=== PATIENT | male | born 1985 | race Caucasian/White ===

== ENCOUNTER 2016-10-18 15:51 | Emergency (ER) | payer MEDICAID ==
[2016-10-18 16:00] VITALS: RESP 18
--- NOTE | 2016-10-18 16:44 | EDPHY ---
H & P Time Seen by Provider: 10/18/16 16:10 HPI/ROS: HPI Depression, suicidal ideation. 30-year-old male by private vehicle with his mother. The patient was sent from the office of his psychiatrist, Dr. España, to be admitted to [address] [place] [address] started on the ECT program. The patient tells me that he has been feeling more depressed and suicidal lately. He states that his 31th birthday is next week any has been thinking about killing himself on his 31th birthday. He does not have a specific plan other than that. He states that he has been feeling more depressed and suicidal over the last 2-3 days. He is here voluntarily. ROS: Constitutional: No fever, no chills. No weakness. Eyes: No discharge. No changes in vision. ENT: No sore throat. No nasal congestion or rhinorrhea. Respiratory: No cough. No shortness of breath. Cardiac: No chest pain, no palpitations. Gastrointestinal: No abdominal pain, no vomiting, no diarrhea. Genitourinary: No hematuria. No dysuria or increased frequency with urination. Musculoskeletal: No back pain. No neck pain. No myalgias or arthralgias. Skin: No rashes. Neurological: No headache. No focal weakness or altered sensation. Past medical history: Depression, appendectomy. As above. Social history: Denies alcohol. Denies IV drugs or street drugs. Here with his mother. Physical Exam: General Appearance: Alert, no distress. Obese. This patient is responding to questions appropriately and in full sentences. This patient appears well- hydrated and well-nourished. Eyes: Pupils equal and round no pallor or injection. No lid edema, erythema or injection. Respiratory: There are no retractions, lungs are clear to auscultation with good air movement bilaterally. Cardiovascular: Regular rate and rhythm. No murmur. Gastrointestinal: Abdomen is soft and nontender, no masses, bowel sounds normal. No focal tenderness at McBurney's point. No Warren sign. Neurological: Motor sensory function is grossly intact. Cranial nerves are normal. Gait is normal. Skin: Warm and dry, no rashes. Musculoskeletal: Neck is supple and nontender. Extremities are symmetrical. All joints range without pain or impingement. Psychiatric: No agitation. Flat affect. Database: EKG: Imaging: Procedures: Emergency department course: Appropriate blood work sent. Patient cleared for behavioral health evaluation at 4:44 p.m.. [facility] is aware of the patient. 5:35 p.m.. [facility] informs me that the patient will be evaluated by EPS. 6:40 p.m., [facility] is not to evaluate this patient. 8:30 p.m., patient seen and evaluated by [facility]. He has been cleared for discharge by the on-call psychiatrist. I am in agreement with this. He has a ECT appointment scheduled for tomorrow. He will stay with his mother eda. He is not suicidal at this time. He understands his follow- up. Return to emergency department precautions discussed. He was discharged in good condition with his mother. Differential Diagnosis: The differential diagnosis on this patient includes but is not limited to situational depression, major depression, suicidal ideation. This represents a partial list of diagnoses considered. These considerations are based on history , physical exam, past history, reassessment and diagnostic testing. Smoking Status: Never smoked Constitutional: Initial Vital Signs Temperature (C) 36.7 C 10/18/16 15:57 Heart Rate 90 10/18/16 15:57 Respiratory Rate 18 10/18/16 15:57 Blood Pressure 156/102 H 10/18/16 15:57 O2 Sat (%) 96 10/18/16 15:57 O2 Delivery Mode Room Air Allergies/Adverse Reactions: amoxicillin Allergy (Verified 10/18/16 15:56) Home Medications: Medication Instructions Recorded Omeprazole [Prilosec 20 mg] 20 mg PO DAILY 06/08/16 EMSAM 10/18/16 Latuda 10/18/16 Methylfolate 10/18/16 Medical Decision Making - Data Points Laboratory Results: Laboratory Results 10/18/16 16:55 10/18/16 16:55 10/18/16 10/18/16 10/18/16 16:55 16:55 15:45 WBC 8.47 10^3/uL 10^3/uL (3.80-9.50) RBC 5.28 10^6/uL 10^6/uL (4.40-6.38) Hgb 13.4 g/dL L g/dL (13.7-17.5) Hct 41.0 % % (40.0-51.0) MCV 77.7 fL L fL (81.5-99.8) MCH 25.4 pg L pg (27.9-34.1) MCHC 32.7 g/dL g/dL (32.4-36.7) RDW 14.4 % % (11.5-15.2) Plt Count 214 10^3/uL 10^3/uL (150-400) MPV 10.5 fL fL (8.7-11.7) Neut % (Auto) 58.7 % % (39.3-74.2) Lymph % (Auto) 25.4 % % (15.0-45.0) [place] % (Auto) 8.6 % % (4.5-13.0) Eos % (Auto) 4.8 % % (0.6-7.6) Baso % (Auto) 0.6 % % (0.3-1.7) Nucleat RBC Rel Count 0.0 % % (0.0-0.2) Absolute Neuts (auto) 4.97 10^3/uL 10^3/uL (1.70-6.50) Absolute Lymphs (auto) 2.15 10^3/uL 10^3/uL (1.00-3.00) Absolute Monos (auto) 0.73 10^3/uL 10^3/uL (0.30-0.80) Absolute Eos (auto) 0.41 10^3/uL H 10^3/uL (0.03-0.40) Absolute Basos (auto) 0.05 10^3/uL 10^3/uL (0.02-0.10) Absolute Nucleated RBC 0.00 10^3/uL 10^3/uL (0-0.01) Immature Gran % 1.9 % H % (0.0-1.1) Immature Gran # 0.16 10^3/uL H 10^3/uL (0.00-0.10) Sodium 139 mEq/L mEq/L (134-144) Potassium 4.2 mEq/L mEq/L (3.5-5.2) Chloride 106 mEq/L mEq/L (97-110) Carbon Dioxide 22 mEq/l mEq/l (22-31) Anion Gap 11 mEq/L mEq/L (8-16) BUN 11 mg/dL mg/dL (7-23) Creatinine 0.9 mg/dL mg/dL (0.7-1.3) Estimated GFR > 60 Glucose 208 mg/dL H mg/dL (70-100) Calcium 9.4 mg/dL mg/dL (8.5-10.4) Salicylates < 1.0 mg/dL L mg/dL (2.0-20.0) Urine Opiates Screen NEGATIVE (NEGATIVE) Acetaminophen < 10 mcg/mL L mcg/mL (10.0-30.0) Urine Barbiturates NEGATIVE (NEGATIVE) Ur Phencyclidine Scrn NEGATIVE (NEGATIVE) Ur Amphetamine Screen NEGATIVE (NEGATIVE) U Benzodiazepines Scrn NEGATIVE (NEGATIVE) Urine Cocaine Screen NEGATIVE (NEGATIVE) U Marijuana (THC) Screen NEGATIVE (NEGATIVE) Ethyl Alcohol < 10 mg/dL mg/dL (0-10) Departure - Departure Disposition: Home, Routine, Self-Care Clinical Impression: Depression Condition: Good Instructions: Depression (ED) Additional Instructions: Read and follow provided instructions. Follow-up for ECT with your psychiatrist tomorrow as scheduled Return to the emergency department for worsening depression, suicidal thoughts or other serious concerns. Referrals: NONE *PRIMARY CARE P,. [Primary Care Provider] - As per Instructions
[2016-10-18 17:10] LABS: % IMMATURE GRANULYOCYTES 1.9 % (0.0-1.1); ABSOLUTE IMMATURE GRANULOCYTES 0.16 10^3/uL (0.00-0.10); ADD DIFF? NO; ADD MORPH? NO; ADD SCAN? NO; ATYPICAL LYMPHOCYTE FLAG 10 (0-99); FRAGMENT RBC FLAG 0 (0-99); HEMOGLOBIN 13.4 g/dL (13.7-17.5); LEFT SHIFT FLG 20 (0-99); LIPEMIA HEMOLYSIS FLAG 80 (0-99); MEAN CELL HEMOGLOBIN 25.4 pg (27.9-34.1); MEAN CELL HEMOGLOBIN CONCENTR. 32.7 g/dL (32.4-36.7); MEAN CELL VOLUME 77.7 fL (81.5-99.8); MEAN PLATELET VOLUME 10.5 fL (8.7-11.7); PLATELET CLUMPS FLAG 0 (0-99); PLATELET COUNT 214 10^3/uL (150-400); RED BLOOD CELL COUNT 5.28 10^6/uL (4.40-6.38); RED CELL DISTRIBUTION WIDTH 14.4 % (11.5-15.2)
[2016-10-18 17:26] LABS: ANION GAP 11 mEq/L (8-16); CALCIUM 9.4 mg/dL (8.5-10.4); CARBON DIOXIDE 22 mEq/l (22-31); CHLORIDE 106 mEq/L (97-110); CREATININE 0.9 mg/dL (0.7-1.3); ETHANOL SERUM < 10 mg/dL (0-10); GLOMERULAR FILTRATION RATE > 60; GLUCOSE 208 mg/dL (70-100); POTASSIUM 4.2 mEq/L (3.5-5.2); SALICYLATE < 1.0 mg/dL (2.0-20.0); SODIUM 139 mEq/L (134-144)
[2016-10-18 21:14] VITALS: BP 139/83; PULSE 92; TEMP 98.4; O2SAT 95
== END 2016-10-18 20:50 | disposition home or self-care (01) ==
DX: F32.9 Major depressive disorder, single episode, unspecified (principal)
CPT/HCPCS: 80305; G0480

== ENCOUNTER 2017-05-06 20:22 | Emergency (ER) | payer MEDICAID ==
[2017-05-06 20:30] VITALS: RESP 18; TEMP 97.7
--- NOTE | 2017-05-06 21:08 | EDPHY ---
H & P Stated Complaint: pt says he was using a knife to open a package, pxn wound to L hand Time Seen by Provider: 05/06/17 21:08 HPI/ROS: HPI: This is a 31-year-old male who presents with Chief Complaint: pt says he was using a knife to open a package, pxn wound to L hand Location: Left hand Quality: Cut by a knife Duration: 1 hour prior to arrival Signs and Symptoms: + moderate bleeding, no radiation, no numbness, no weakness , no tingling, no incontinence, no decreased range of motion Timing: Acute Severity: Mild Context: Patient reports that he was using his pocket knife to open up a package; slipped; and accidentally cut the area between his 1st and 2nd digit. He noted quite a bit of bleeding at 1st that was unable to get to stop so he called EMS. They applied direct pressure and a bandage and transported to the emergency room. He is right-hand dominant. Unsure of his last tetanus shot. He reports [id number] pain in his left hand. Denies decreased range of motion/paresthesias. Modifying Factors: Direct pressure Comment: ROS: Constitutional: No fever, no chills, no weight loss Eyes: No blurred vision Respiratory: No shortness of breath, no cough Cardiovascular: No chest pain Gastrointestinal: No nausea, no vomiting no diarrhea Genitourinary: No dysuria Extremities: No myalgias Neurologic: No weakness, no numbness Skin: No rashes Hematologic: No bruising, no bleeding CONSTITUTIONAL: malodorous obese well-appearing white male, awake and alert, no obvious distress HEENT: Atraumatic and normocephalic, PERRL, EOMI. Tympanic membranes clear. Oropharynx clear, no exudate and moist pink mucosa. Airway patent. No lymphadenopathy. No meningismus. Cardiovascular: Normal S1/S2, regular rate, regular rhythm, without murmur rub or gallop. PULMONARY/CHEST: Symmetrical and nontender. Clear to auscultation bilaterally. Good air movement. No accessory muscle usage. ABDOMEN: Soft, nondistended, nontender, no rebound, no guarding, no peritoneal signs, no masses or organomegaly. No CVAT. EXTREMITIES: 2/2 pulses, left hand 2 cm puncture wound at the 1st dorsal interosseous area. No scaphoid tenderness. 1st and 2nd digits DIP/PIP flexion and extension intact. Good light touch sensation. no deformities, no clubbing, no cyanosis or edema. NEUROLOGICAL: no focal neuro deficits. GCS 15. SKIN: Warm and dry, no erythema. no rash. Good capillary refill. Source: Patient Exam Limitations: No limitations - Medical/Surgical History Hx Asthma: No Hx Chronic Respiratory Disease: No Hx Diabetes: No Hx Cardiac Disease: No Hx Renal Disease: No Hx Cirrhosis: No Hx Alcoholism: No Hx HIV/AIDS: No Hx Splenectomy or Spleen Trauma: No Other PMH: depression, PE tubes as child / appy, hypertension, bipolar - Social History Smoking Status: Never smoked Constitutional: Initial Vital Signs Temperature (C) 36.5 C 05/06/17 20:27 Heart Rate 93 05/06/17 20:27 Respiratory Rate 18 05/06/17 20:27 Blood Pressure 165/102 H 05/06/17 20:27 O2 Sat (%) 99 05/06/17 20:27 O2 Delivery Mode Room Air Allergies/Adverse Reactions: amoxicillin Allergy (Verified 05/06/17 20:30) Home Medications: Medication Instructions Recorded Omeprazole [Prilosec 20 mg] 20 mg PO DAILY 06/08/16 Methylfolate 10/18/16 Hydrochlorothiazide 05/06/17 LaMICtal 05/06/17 Lisinopril 05/06/17 [place] Carbonate 05/06/17 Wellbutrin 100mg (*) 05/06/17 Medical Decision Making Procedures: Procedure: Laceration repair. Verbal consent was obtained from the patient. The simple, linear, 2 cm laceration on the left hand at the 1st dorsal interosseous was anesthetized in the usual fashion using 5 mL of 1% lidocaine without epinephrine. The wound was irrigated, draped and explored to its base with a gloved finger. There were no deep structures involved. No tendon injury was identified. The wound was repaired with #3, 6-0 Prolene in a simple directed pattern. Xeroform and clean sterile dressing applied. Good hemostasis was achieved and patient tolerated procedure well. The procedure was performed by myself. ED Course/Re-evaluation: Hand x-ray ordered Tetanus booster given No signs of neurovascular compromise/tenting of skin/compartment syndrome/ extremities and joints examined above and below area of concern and are neurovascularly intact. X-ray my read shows no acute fracture/dislocation/foreign body Closed with 3 nonabsorbable sutures Written and verbal wound care/suture care instructions provided. Clean sterile dressing placed. Differential Diagnosis: Differential includes laceration, nerve injury, tendon injury, foreign body. - Data Points Medications Given: Discontinued Medications Diphtheria/Tetanus/Acell Pertussis (Boostrix) 0.5 ml IM .ONCE ONE Stop: 05/06/17 21:15 Last Admin: 05/06/17 21:22 Dose: 0.5 ml Departure - Departure Disposition: Home, Routine, Self-Care Clinical Impression: Laceration of hand Qualifiers: Encounter type: initial encounter Foreign body presence: without foreign body Laterality: left Qualified Code(s): S61.412A - Laceration without foreign body of left hand, initial encounter Condition: Good Instructions: Care For Your Stitches (ED), Laceration (ED) Additional Instructions: Keep the dressing in place for 48 hours. After 48 hours, you may remove the dressing; wash the site daily with mild soap and water; then pat dry. Take ibuprofen 600-800 mg every 6-8 hours with food as needed for pain and inflammation. Apply ice for 30 minutes at a time; 2-3 times per day for the next 1-2 days. Please return to the emergency room to have her sutures removed in 7-10 days. Please return sooner to the emergency room if signs and symptoms of infection occur including increased warmth/drainage/erythema/fever/streaking. Follow up with Orthopedics in 7-10 days if symptoms worsen at which time they will re-evaluate. The x-rays obtained in the emergency department today demonstrate no evidence of an obvious fracture. Sometimes fractures are not obvious on the initial set of x-rays performed in the ED. For this reason, you should have repeat x-rays performed in 7-10 days if you are having any pain exclude the possibility of an occult fracture. Referrals: ANEUYD DELATORRE [Other] - As per Instructions
[2017-05-06] MEDS ORDERED: TDAP ADULT 0.5 ML INJ (BOOSTRIX) IM ONE (21:14)
[2017-05-06 22:03] VITALS: BP 134/87; PULSE 89; O2SAT 95
== END 2017-05-06 22:03 | disposition home or self-care (01) ==
PROC: 0HQGXZZ Repair Left Hand Skin, External Approach (ICD-10-PCS; principal; 2017-05-06)
DX: S61.412A Laceration without foreign body of left hand, initial encounter (principal); W26.0XXA Contact with knife, initial encounter; I10 Essential (primary) hypertension; Z23 Encounter for immunization

== ENCOUNTER 2017-07-29 03:36 | Emergency (ER) | payer MEDICAID ==
[2017-07-29 03:40] VITALS: TEMP 97.7
[2017-07-29] MEDS ORDERED: ONDANSETRON 4 MG/2 ML VIAL IVP ONE (03:57)
[2017-07-29] MEDS ORDERED: NS 1,000 ML IV ONE (03:57)
--- NOTE | 2017-07-29 04:00 | EDPHY ---
H & P Stated Complaint: N & V Time Seen by Provider: 07/29/17 03:42 HPI/ROS: HPI The patient presents with vomiting which began about 4-5 hours prior to presentation. He has multiple episodes of nonbloody nonbilious emesis which has been fairly constant. This is associated with 2 episodes of loose stool. He has diffuse crampy intermittent abdominal pain. He denies any fever or sick contacts. He has no prior history of similar.. REVIEW OF SYSTEMS Constitutional: No fever, no chills. Eyes: No discharge. ENT: No sore throat. Cardiovascular: No chest pain, no palpitations. Respiratory: No cough, no shortness of breath. Gastrointestinal: No abdominal pain, no vomiting. Genitourinary: No hematuria. Musculoskeletal: No back pain. Skin: No rashes. Neurological: No headache. PMHx: Depression, hypertension, GERD Soc Hx: Lives alone, no alcohol use recently PHYSICAL General Appearance: Alert, no distress Eyes: Pupils equal and round no pallor or injection ENT, Mouth: Mucous membranes moist Respiratory: There are no retractions, lungs are clear to auscultation Cardiovascular: Regular rate and rhythm Gastrointestinal: Abdomen is soft and non-tender, no masses, bowel sounds normal Neurological: A&O, moves all extremities Skin: Warm and dry, no rashes Musculoskeletal: Neck is supple non tender Extremities: symmetrical, full range of motion Psychiatric: Patient is oriented X 3, there is no agitation Source: Patient Exam Limitations: No limitations - Personal History Current Tetanus/Diphtheria Vaccine: Unsure Current Tetanus Diphtheria and Acellular Pertussis (TDAP): Unsure - Medical/Surgical History Hx Asthma: No Hx Chronic Respiratory Disease: No Hx Diabetes: No Hx Cardiac Disease: No Hx Renal Disease: No Hx Cirrhosis: No Hx Alcoholism: No Hx HIV/AIDS: No Hx Splenectomy or Spleen Trauma: No Other PMH: depression, PE tubes as child / appy, hypertension, bipolar - Social History Smoking Status: Never smoked Constitutional: Initial Vital Signs Temperature (C) 36.5 C 07/29/17 03:38 Heart Rate 112 H 07/29/17 03:38 Respiratory Rate 14 07/29/17 03:38 Blood Pressure 147/90 H 07/29/17 03:38 O2 Sat (%) 95 07/29/17 03:38 O2 Delivery Mode Room Air Allergies/Adverse Reactions: amoxicillin Allergy (Verified 05/06/17 20:30) Home Medications: Medication Instructions Recorded Omeprazole [Prilosec 20 mg] 20 mg PO DAILY 06/08/16 Methylfolate 10/18/16 Hydrochlorothiazide 05/06/17 LaMICtal 05/06/17 Lisinopril 05/06/17 [place] Carbonate 05/06/17 Wellbutrin 100mg (*) 05/06/17 Ondansetron Odt [Zofran Odt 4 mg 4 mg PO Q4 PRN #10 tab 07/29/17 (*)] Medical Decision Making Differential Diagnosis: 31-year-old male with hypertension, GERD, depression presents with 4-5 hours of nausea and vomiting, unable to tolerate anything by mouth. On exam, he is tachycardic, appears clinically dehydrated with dry mucous membranes, has a benign abdominal exam. Differential diagnosis includes viral gastroenteritis, toxin mediated enterocolitis, less likely appendicitis. In the emergency department, patient was started on IV fluids and Zofran. Basic labs were checked. These were unremarkable showing just mild dehydration. Patient's tachycardia improved. Abdominal exam is benign. The patient reports he is status post appendectomy. He feels well enough to go home. He was able to tolerate fluids by mouth. I feel he is likely suffering from a viral gastroenteritis and I have explained this to him. - Data Points Laboratory Results: Laboratory Results 07/29/17 04:18 07/29/17 03:00 Medications Given: Discontinued Medications Sodium Chloride (Ns) 1,000 mls @ 0 mls/hr IV ONCE ONE; Wide Open PRN Reason: Protocol Stop: 07/29/17 03:58 Last Admin: 07/29/17 04:00 Dose: 1,000 mls Ondansetron HCl (Zofran) 4 mg IVP EDNOW ONE Stop: 07/29/17 03:58 Last Admin: 07/29/17 04:00 Dose: 4 mg Ondansetron HCl (Zofran Odt 4 Mg Prepack#2) 1 btl TAKEHOME EDNOW ONE Stop: 07/29/17 05:26 Last Admin: 07/29/17 05:31 Dose: 1 btl Departure - Departure Disposition: Home, Routine, Self-Care Instructions: Ondansetron (By mouth), Abdominal Pain (ED) Referrals: UNKNOWN,NAME [Other] - As per Instructions Prescriptions: Ondansetron Odt [Zofran Odt 4 mg (*)] 4 mg PO Q4 PRN #10 tab PRN Reason: Nausea/Vomiting, Can'T Take Po
[2017-07-29 04:23] LABS: PLATELET COUNT 188 10^3/uL (150-400)
[2017-07-29] MEDS ORDERED: ONDANSETRON 4MG PREPACK#2 BTL TAKEHOME ONE (05:25)
[2017-07-29 05:37] VITALS: BP 107/53; PULSE 108; RESP 16; O2SAT 96
== END 2017-07-29 05:37 | disposition home or self-care (01) ==
DX: R11.2 Nausea with vomiting, unspecified (principal); R19.7 Diarrhea, unspecified; I10 Essential (primary) hypertension; E86.9 Volume depletion, unspecified
CPT/HCPCS: 96374

== ENCOUNTER 2018-01-12 04:10 | Emergency (ER) | payer MEDICAID ==
[2018-01-12] MEDS ORDERED: NS 1,000 ML IV ONE (04:59)
--- NOTE | 2018-01-12 04:59 | EDPHY ---
H & P Stated Complaint: Heart "feels funy" Time Seen by Provider: 01/12/18 04:30 HPI/ROS: HPI The patient presents with heart palpitations which has been present for the last several hours and have kept him from sleeping tonight. He feels that his heart is occasionally skipping a beat. He does not have any chest pain, shortness of breath, nausea or vomiting. He has no prior history of similar. He is not on any new medications, he is undergoing a treatment called trans cranial magnetic stimulation over the last 2 weeks as prescribed by his psychiatrist. He is having treatments 5 times a week. He has a history of hypertension though does not have any known structural heart disease. REVIEW OF SYSTEMS Constitutional: No fever, no chills. Eyes: No discharge. ENT: No sore throat. Cardiovascular: No chest pain, no palpitations. Respiratory: No cough, no shortness of breath. Gastrointestinal: No abdominal pain, no vomiting. Genitourinary: No hematuria. Musculoskeletal: No back pain. Skin: No rashes. Neurological: No headache. PMHx: Hypertension, depression Soc Hx: Housed, denies drug use PHYSICAL General Appearance: Alert, no distress Eyes: Pupils equal and round no pallor or injection ENT, Mouth: Mucous membranes moist Respiratory: There are no retractions, lungs are clear to auscultation Cardiovascular: Regular rate and rhythm Gastrointestinal: Abdomen is soft and non-tender, no masses, bowel sounds normal Neurological: A&O, moves all extremities Skin: Warm and dry, no rashes Musculoskeletal: Neck is supple non tender Extremities: symmetrical, full range of motion Psychiatric: Patient is oriented X 3, there is no agitation Source: Patient Exam Limitations: No limitations - Personal History Current Tetanus/Diphtheria Vaccine: Yes Current Tetanus Diphtheria and Acellular Pertussis (TDAP): Yes - Medical/Surgical History Hx Asthma: No Hx Chronic Respiratory Disease: No Hx Diabetes: No Hx Cardiac Disease: No Hx Renal Disease: No Hx Cirrhosis: No Hx Alcoholism: No Hx HIV/AIDS: No Hx Splenectomy or Spleen Trauma: No Other PMH: depression, PE tubes as child / appy, hypertension, bipolar - Social History Smoking Status: Never smoked Constitutional: Initial Vital Signs Temperature (C) 36.6 C 01/12/18 04:12 Heart Rate 80 01/12/18 04:12 Respiratory Rate 16 01/12/18 04:12 Blood Pressure 135/93 H 01/12/18 04:12 O2 Sat (%) 96 01/12/18 04:12 O2 Delivery Mode Room Air Allergies/Adverse Reactions: amoxicillin Allergy (Verified 05/06/17 20:30) Home Medications: Medication Instructions Recorded Hydrochlorothiazide 05/06/17 LaMICtal 05/06/17 Lisinopril 05/06/17 [place] Carbonate 05/06/17 Wellbutrin 100mg (*) 05/06/17 Medical Decision Making - Diagnostics EKG Interpretation: EKG: Complete interpretation has been separately recorded in the [facility] archive. Summary impression: Multi form PVCs Imaging Results: Chest x-ray two view shows no cardiomegaly, no infiltrate, no effusion, interpreted by me, radiology interpretation is pending. Differential Diagnosis: 32-year-old male with history of hypertension, depression presents with palpitations over the last several hours. On exam, well-appearing. EKG showing PVCs. The patient has no known history of underlying structural heart disease. He is receiving a new to treatment over the last 2 weeks by his psychiatrist called trans cranial magnetic stimulation, however arrhythmia as are not unknown side-effect. Plan for basic labs to evaluate for anemia, electrolyte disturbance, heart failure. Labs were checked and were unremarkable. The patient did receive an IV fluid bolus and this caused some improvement in his PVCs on the monitor. I will have him follow up with Cardiology if his symptoms persist. He is happy with this plan. - Data Points Laboratory Results: Laboratory Results 01/12/18 04:42 01/12/18 04:42 01/12/18 01/12/18 04:42 04:42 WBC 9.70 10^3/uL H 10^3/uL (3.80-9.50) RBC 5.33 10^6/uL 10^6/uL (4.40-6.38) Hgb 13.6 g/dL L g/dL (13.7-17.5) Hct 41.9 % % (40.0-51.0) MCV 78.6 fL L fL (81.5-99.8) MCH 25.5 pg L pg (27.9-34.1) MCHC 32.5 g/dL g/dL (32.4-36.7) RDW 14.5 % % (11.5-15.2) Plt Count 261 10^3/uL 10^3/uL (150-400) MPV 10.4 fL fL (8.7-11.7) Neut % (Auto) 52.3 % % (39.3-74.2) Lymph % (Auto) 33.8 % % (15.0-45.0) [place] % (Auto) 7.8 % % (4.5-13.0) Eos % (Auto) 3.6 % % (0.6-7.6) Baso % (Auto) 0.7 % % (0.3-1.7) Nucleat RBC Rel Count 0.0 % % (0.0-0.2) Absolute Neuts (auto) 5.07 10^3/uL 10^3/uL (1.70-6.50) Absolute Lymphs (auto) 3.28 10^3/uL H 10^3/uL (1.00-3.00) Absolute Monos (auto) 0.76 10^3/uL 10^3/uL (0.30-0.80) Absolute Eos (auto) 0.35 10^3/uL 10^3/uL (0.03-0.40) Absolute Basos (auto) 0.07 10^3/uL 10^3/uL (0.02-0.10) Absolute Nucleated RBC 0.00 10^3/uL 10^3/uL (0-0.01) Immature Gran % 1.8 % H % (0.0-1.1) Immature Gran # 0.17 10^3/uL H 10^3/uL (0.00-0.10) Sodium 144 mEq/L mEq/L (135-145) Potassium 3.8 mEq/L mEq/L (3.3-5.0) Chloride 108 mEq/L mEq/L (97-110) Carbon Dioxide 24 mEq/l mEq/l (22-31) Anion Gap 12 mEq/L mEq/L (8-16) BUN 13 mg/dL mg/dL (7-23) Creatinine 1.0 mg/dL mg/dL (0.7-1.3) Estimated GFR > 60 Glucose 90 mg/dL mg/dL (70-100) Calcium 9.1 mg/dL mg/dL (8.5-10.4) Magnesium 2.2 mg/dL mg/dL (1.6-2.3) NT-Pro-B Natriuret Pep < 11 pg/mL pg/mL (0-125) Medications Given: Discontinued Medications Sodium Chloride (Ns) 1,000 mls @ 0 mls/hr IV EDNOW ONE; Wide Open PRN Reason: Protocol Stop: 01/12/18 05:00 Last Admin: 01/12/18 05:10 Dose: 1,000 mls Departure - Departure Disposition: Home, Routine, Self-Care Clinical Impression: PVC (premature ventricular contraction) Condition: Good Instructions: Heart Palpitations (ED) Additional Instructions: Your testing today shows that you have premature ventricular contractions also known as PVCs. This can make you feel like your heart is skipping a beat. I recommend that you call the right of way appraiser to arrange for a follow-up appointment and more testing if your symptoms persist. You should return to the emergency department if you are worse in any way. Referrals: Kofi Thompson MD [Medical Doctor] - As per Instructions
[2018-01-12 05:02] LABS: PLATELET COUNT 261 10^3/uL (150-400)
[2018-01-12 06:34] VITALS: BP 136/81
--- NOTE | 2018-01-12 14:04 | CPEKG ---
Heart Rate: 80 RR Interval: 750 P-R Interval: 172 QRSD Interval: 90 QT Interval: 400 QTC Interval: 462 P Logan: 47 QRS Logan: 56 T Wave Logan: 0 EKG Severity - ABNORMAL ECG - EKG Impression: SINUS RHYTHM EKG Impression: MULTIFORM VENTRICULAR PREMATURE COMPLEXES Electronically Signed By: Tiffanie Sharpe 13-Jan-2018 04:56:19
== END 2018-01-12 06:17 | disposition home or self-care (01) ==
DX: I49.3 Ventricular premature depolarization (principal); I10 Essential (primary) hypertension; E86.9 Volume depletion, unspecified

== ENCOUNTER 2018-03-04 21:08 | Emergency (ER) | payer MEDICAID ==
--- NOTE | 2018-03-04 21:25 | CPEKG ---
Heart Rate: 78 RR Interval: 769 P-R Interval: 184 QRSD Interval: 92 QT Interval: 392 QTC Interval: 447 P Coker: 32 QRS Coker: 23 T Wave Coker: 1 EKG Severity - NORMAL ECG - EKG Impression: SINUS RHYTHM Electronically Signed By: Vin Barker 05-Mar-2018 08:44:29
[2018-03-04] MEDS ORDERED: ASPIRIN 81 MG CHEWABLE TAB PO ONE (21:57)
[2018-03-04] MEDS ORDERED: KETOROLAC 30 MG/1 ML SDV IVP ONE (21:57)
--- NOTE | 2018-03-04 22:00 | EDPHY ---
H & P Time Seen by Provider: 03/04/18 21:31 HPI/ROS: CHIEF COMPLAINT: Chest pain HISTORY OF PRESENT ILLNESS: Patient is a 32-year-old male presents emergency department with chest pain for the past 3 days. Patient describes it is substernal. It does not radiate. It is not positional. Patient has had no shortness of breath. No recent cough or fever. No leg pain or swelling. No recent travel. REVIEW OF SYSTEMS: My complete review of systems is negative except as mentioned in the HPI. Past Medical/Surgical History: Includes hypertension, depression, bipolar disorder Smoking Status: Never smoked Physical Exam: Vitals noted GENERAL: Well-appearing, in no acute distress, alert. HEENT: Eyes normal to inspection, normal pharynx, no signs of dehydration. NECK: No thyromegaly, no lymphadenopathy, supple. RESPIRATORY: Clear to auscultation bilaterally, no rales, rhonchi or wheezing. CVS: Regular rate and rhythm, no rubs, murmurs, or gallops. No chest wall tenderness palpation ABDOMEN: Soft, nontender, nondistended, no organomegaly. BACK: Normal to inspection, no CVA tenderness. SKIN: Normal color, no rash, warm, dry. No pallor. EXTREMITIES: No pedal edema, no calf tenderness, no Homans sign or cords, no joint swelling. NEURO/PSYCH: Alert and oriented, flat affect, normal motor sensory exam. No obvious cranial nerve deficit. Constitutional: Initial Vital Signs Temperature (C) 36.7 C 03/04/18 21:11 Heart Rate 86 03/04/18 21:11 Respiratory Rate 18 03/04/18 21:11 Blood Pressure 168/119 H 03/04/18 21:11 O2 Sat (%) 94 03/04/18 21:11 O2 Delivery Mode Room Air Allergies/Adverse Reactions: amoxicillin Allergy (Verified 03/04/18 21:13) Home Medications: Medication Instructions Recorded Hydrochlorothiazide 05/06/17 LaMICtal 05/06/17 Lisinopril 05/06/17 [place] Carbonate 05/06/17 Wellbutrin 100mg (*) 05/06/17 Medical Decision Making - Diagnostics Imaging Results: Imaging Impressions Chest X-Ray 03/04/18 21:57 Impression: Possible airways disease. Otherwise negative. ED Course/Re-evaluation: In the emergency department I discussed possible etiologies with the patient. I answered all his questions. IV was placed. Laboratory studies, EKG and chest x-ray were ordered. Patient was given aspirin 324 mg orally. Patient was given Toradol 30 mg IV. EKG shows normal sinus rhythm, normal rate, normal axis, normal intervals. There are no ST or T-wave abnormalities. EKG is normal as interpreted by me. CBC was unremarkable. Troponin was negative. Initial chemistry panel was rejected from the lab. I-STAT was performed. Patient had a normal creatinine 1.2. Patient's potassium was slightly low at 3.1. Chest x-ray: No pneumonia or infiltrate. No mass. No pneumothorax. Patient was given potassium chloride 40 mEq orally. I discussed the results with the patient. I answered all his questions. He was feeling better. He was given warnings prior to leaving. Will follow up with primary care. Differential Diagnosis: My differential includes but is not limited to ACS, acute NH, pulmonary embolus , pneumonia, bronchitis, pleurisy, pancreatitis, cholecystitis - Data Points Laboratory Results: Laboratory Results 03/04/18 21:32 03/04/18 21:32 03/04/18 03/04/18 03/04/18 22:25 21:37 21:32 WBC RBC Hgb POC Hgb 13.6 gm/dL L gm/dL (13.7-17.5) Hct POC Hct 40 % % (40-51) MCV MCH MCHC RDW Plt Count MPV Neut % (Auto) Lymph % (Auto) [place] % (Auto) Eos % (Auto) Baso % (Auto) Nucleat RBC Rel Count Absolute Neuts (auto) Absolute Lymphs (auto) Absolute Monos (auto) Absolute Eos (auto) Absolute Basos (auto) Absolute Nucleated RBC Immature Gran % Immature Gran # POC Sodium 143 mEq/L mEq/L (135-145) Sodium REJ POC Potassium 3.1 mEq/L L mEq/L (3.3-5.0) Potassium REJ POC Chloride 103 mEq/L mEq/L (97-110) Chloride REJ Carbon Dioxide REJ Anion Gap REJ POC BUN 16 mg/dL mg/dL (7-23) BUN REJ Creatinine REJ POC Creatinine 1.2 mg/dL mg/dL (0.7-1.3) Estimated GFR REJ Glucose REJ POC Glucose 101 mg/dL H mg/dL (70-100) Calcium REJ Total Bilirubin REJ Conjugated Bilirubin REJ Unconjugated Bilirubin REJ AST REJ ALT REJ Alkaline Phosphatase REJ POC Troponin I 0.00 ng/mL ng/mL (0.00-0.08) Total Protein REJ Albumin REJ Lipase REJ 03/04/18 21:32 WBC REJ RBC REJ Hgb REJ POC Hgb Hct REJ POC Hct MCV REJ MCH REJ MCHC REJ RDW REJ Plt Count REJ MPV REJ Neut % (Auto) REJ Lymph % (Auto) REJ [place] % (Auto) REJ Eos % (Auto) REJ Baso % (Auto) REJ Nucleat RBC Rel Count REJ Absolute Neuts (auto) REJ Absolute Lymphs (auto) REJ Absolute Monos (auto) REJ Absolute Eos (auto) REJ Absolute Basos (auto) REJ Absolute Nucleated RBC REJ Immature Gran % REJ Immature Gran # REJ POC Sodium Sodium POC Potassium Potassium POC Chloride Chloride Carbon Dioxide Anion Gap POC BUN BUN Creatinine POC Creatinine Estimated GFR Glucose POC Glucose Calcium Total Bilirubin Conjugated Bilirubin Unconjugated Bilirubin AST ALT Alkaline Phosphatase POC Troponin I Total Protein Albumin Lipase Medications Given: Discontinued Medications Aspirin (Aspirin) 324 mg PO EDNOW ONE Stop: 03/04/18 21:58 Last Admin: 03/04/18 22:07 Dose: 324 mg Ketorolac Tromethamine (Toradol) 30 mg IVP EDNOW ONE Stop: 03/04/18 21:58 Last Admin: 03/04/18 22:07 Dose: 30 mg Point of Care Test Results: Chemistry 03/04/18 03/04/18 22:25 21:37 POC Sodium 143 mEq/L mEq/L (135-145) POC Potassium 3.1 mEq/L L mEq/L (3.3-5.0) POC Chloride 103 mEq/L mEq/L (97-110) POC BUN 16 mg/dL mg/dL (7-23) POC Creatinine 1.2 mg/dL mg/dL (0.7-1.3) POC Glucose 101 mg/dL H mg/dL (70-100) POC Troponin I 0.00 ng/mL ng/mL (0.00-0.08) ISTAT H&H 03/04/18 22:25 POC Hgb 13.6 gm/dL L gm/dL (13.7-17.5) POC Hct 40 % % (40-51) Departure - Departure Disposition: Home, Routine, Self-Care Clinical Impression: Chest pain Qualifiers: Chest pain type: unspecified Qualified Code(s): R07.9 - Chest pain, unspecified Condition: Good Instructions: Chest Pain (ED) Additional Instructions: Return with increasing chest pain, shortness of breath or any other concerns. Referrals: ELENI GOFF [Other] - 1-2 days without fail
[2018-03-04] MEDS ORDERED: POTASSIUM CL 20 MEQ/15 ML UDCUP ONE (22:28)
[2018-03-04] MEDS ORDERED: POTASSIUM CL 20 MEQ/15 ML UDCUP PO ONE (22:32)
[2018-03-04 22:34] VITALS: BP 143/86
== END 2018-03-04 22:44 | disposition home or self-care (01) ==
DX: R07.9 Chest pain, unspecified (principal); I10 Essential (primary) hypertension
CPT/HCPCS: 82435-PO; 82565-PO; 82947-PO; 84132-PO; 84295-PO; 84484-PO; 84520-PO; 85014-PO; 96374; J1885

== ENCOUNTER 2018-09-11 23:26 | Emergency (ER) | payer MEDICAID ==
--- NOTE | 2018-09-11 23:40 | EDPHY ---
H & P Time Seen by Provider: 09/11/18 23:31 HPI/ROS: Chief Complaint: Chest pain, fatigue HPI: 32-year-old male with a history of depression obesity is presenting with chest pain and fatigue. He has had persistent chest pain to the course today. As move around a little bit. The last several hours has pain in his central test. At worst is 6/10. Currently a 4/10. Described as a dull ache. It is not exertional. It is not pleuritic. He has had some generalized fatigue. No shortness of breath. No cough. No fevers or chills. No nausea or vomiting. Has had a similar episodes in the past and was told he was having PVCs. No family history of coronary artery disease or sudden cardiac . Patient denies being suicidal at this time. ROS: 10 systems were reviewed and were negative except those elements noted in the HPI. PMH: Depression Social History: No smoking, rare alcohol, no recreational drug use Family History: non-contributory Physical Exam: Gen: Awake, Alert, No Distress, morbidly obese HEENT: Nose: no rhinorrhea Eyes: PERRLA, EOMI Mouth: Moist mucosa Neck: Supple, no JVD Chest: nontender, lungs clear to auscultation Heart: S1, S2 normal, no murmur Abd: Soft, non-tender, no guarding Back: no CVA tenderness, no midline tenderness Ext: no edema, non-tender Skin: no rash Neuro: CN II-XII intact, Sensation grossly intact, Strength 5/5 in bilateral upper and lower extremities - Medical/Surgical History Hx Asthma: No Hx Chronic Respiratory Disease: No Hx Diabetes: No Hx Cardiac Disease: No Hx Renal Disease: No Hx Cirrhosis: No Hx Alcoholism: No Hx HIV/AIDS: No Hx Splenectomy or Spleen Trauma: No Other PMH: depression, PE tubes as child / appy, hypertension, bipolar, - Social History Smoking Status: Never smoked Constitutional: Initial Vital Signs Temperature (C) 36.4 C 09/11/18 23:37 Heart Rate 75 09/11/18 23:37 Respiratory Rate 15 09/11/18 23:37 Blood Pressure 110/71 09/11/18 23:37 O2 Sat (%) 95 09/11/18 23:37 O2 Delivery Mode Room Air Allergies/Adverse Reactions: amoxicillin Allergy (Verified 03/04/18 21:13) Home Medications: Medication Instructions Recorded Hydrochlorothiazide 05/06/17 LaMICtal 05/06/17 Lisinopril 05/06/17 [place] Carbonate 05/06/17 Wellbutrin 100mg (*) 05/06/17 Medical Decision Making - Diagnostics EKG Interpretation: ECG time 11:35 p.m., sinus rhythm with a rate of 70, normal axis, normal intervals, no acute ST or T-wave changes. Impression: Normal ECG. Imaging Results: Chest x-ray is negative per my interpretation. Imaging: I viewed and interpreted images myself ED Course/Re-evaluation: 32-year-old male with persistent chest pain throughout the course today with fatigue. No shortness of breath. ECG is normal. Troponin is normal. Chest x- ray is normal. Is not have any risk factors for coronary artery disease. Patient has been reassured. Will discharge with follow-up with primary care, return for any concerns. - Data Points Laboratory Results: Laboratory Results 09/11/18 23:35 09/11/18 23:35 09/11/18 09/11/18 09/11/18 23:39 23:35 23:35 WBC 14.84 10^3/uL H 10^3/uL (3.80-9.50) RBC 5.47 10^6/uL 10^6/uL (4.40-6.38) Hgb 14.4 g/dL g/dL (13.7-17.5) Hct 43.9 % % (40.0-51.0) MCV 80.3 fL L fL (81.5-99.8) MCH 26.3 pg L pg (27.9-34.1) MCHC 32.8 g/dL g/dL (32.4-36.7) RDW 14.8 % % (11.5-15.2) Plt Count 313 10^3/uL 10^3/uL (150-400) MPV 10.5 fL fL (8.7-11.7) Neut % (Auto) 55.7 % % (39.3-74.2) Lymph % (Auto) 30.7 % % (15.0-45.0) [place] % (Auto) 8.0 % % (4.5-13.0) Eos % (Auto) 4.0 % % (0.6-7.6) Baso % (Auto) 0.5 % % (0.3-1.7) Nucleat RBC Rel Count 0.0 % % (0.0-0.2) Absolute Neuts (auto) 8.25 10^3/uL H 10^3/uL (1.70-6.50) Absolute Lymphs (auto) 4.56 10^3/uL H 10^3/uL (1.00-3.00) Absolute Monos (auto) 1.19 10^3/uL H 10^3/uL (0.30-0.80) Absolute Eos (auto) 0.59 10^3/uL H 10^3/uL (0.03-0.40) Absolute Basos (auto) 0.08 10^3/uL 10^3/uL (0.02-0.10) Absolute Nucleated RBC 0.00 10^3/uL 10^3/uL (0-0.01) Immature Gran % 1.1 % % (0.0-1.1) Immature Gran # 0.17 10^3/uL H 10^3/uL (0.00-0.10) Sodium 138 mEq/L mEq/L (135-145) Potassium 4.4 mEq/L mEq/L (3.5-5.2) Chloride 106 mEq/L mEq/L (97-110) Carbon Dioxide 21 mEq/l L mEq/l (22-31) Anion Gap 11 mEq/L mEq/L (6-14) BUN 15 mg/dL mg/dL (7-23) Creatinine 1.1 mg/dL mg/dL (0.7-1.3) Estimated GFR > 60 Glucose 80 mg/dL mg/dL (70-100) Calcium 9.9 mg/dL mg/dL (8.5-10.4) POC Troponin I 0.00 ng/mL ng/mL (0.00-0.08) Medications Given: Discontinued Medications Ibuprofen (Motrin) 600 mg PO EDNOW ONE Stop: 09/11/18 23:50 Last Admin: 09/11/18 23:53 Dose: 600 mg Point of Care Test Results: Chemistry 09/11/18 23:39 POC Troponin I 0.00 ng/mL ng/mL (0.00-0.08) Departure - Departure Disposition: Home, Routine, Self-Care Clinical Impression: Atypical chest pain Condition: Good Instructions: Chest Pain (ED) Additional Instructions: Take ibuprofen, 600 mg every 8 hr. You may alternate with acetaminophen, 1000 mg every 8 hr. Follow up with primary care physician in 2-3 days for further evaluation. Return to the emergency department for worsening chest pain, shortness of breath , fevers, chills, cough, or any other concerns. Referrals: ELENI GOFF [Other] - As per Instructions
[2018-09-11] MEDS ORDERED: IBUPROFEN 600 MG TAB PO ONE (23:49)
[2018-09-11 23:58] LABS: PLATELET COUNT 313 10^3/uL (150-400)
[2018-09-12 00:40] VITALS: BP 107/66
== END 2018-09-12 00:39 | disposition home or self-care (01) ==
DX: R07.89 Other chest pain (principal); I10 Essential (primary) hypertension; F32.9 Major depressive disorder, single episode, unspecified; E66.9 Obesity, unspecified; Z68.41 Body mass index [BMI] 40.0-44.9, adult
CPT/HCPCS: 84484-ER